=== PATIENT | male | born 1945 | race Caucasian/White ===

== ENCOUNTER 2022-04-02 19:24 | Emergency (ER) | payer OTHER ==
[~2022-04-02] VITALS: Ht 175.3 cm; Wt 61.2 kg
[2022-04-02 19:47] VITALS: BP_SYST 116
--- NOTE | 2022-04-02 22:29 | NUR ---
Assumed care of pt and pt is coming from home uses wheelchair due to left leg pain. Accompanied by daughter. Pt c/o left leg pain and swelling. Had left hip surgery x2 weeks ago. Went to urgent care but referred him here to rule out DVT. Pt is A&OX4. Skin intact. VSS.Has hx of DM, HTN, and TIA. NKA. Bed on lowest position.
--- NOTE | 2022-04-02 23:10 | NUR ---
Dr. Osorio at bedside examining pt.
--- NOTE | 2022-04-03 00:03 | NUR ---
COVID SWAB COLLECTED AND SENT TO LAB.
--- NOTE | 2022-04-03 00:06 | NUR ---
X-Ray at bedside.
[2022-04-03 00:21] LABS: HEMOGLOBIN 10.3 g/dL (14.0-18.0)
[2022-04-03 00:31] LABS: ANION GAP 9 (5-15); BASOPHILS % (AUTO) 0.4 % (0.0-2.0); CALCIUM 8.8 mg/dL (8.4-11.0); CHLORIDE 101 mmol/L (98-107); CREATININE 0.83 mg/dL (0.55-1.30); EOSINOPHILS # (AUTO) 0.4 K/uL (0.0-0.4); EOSINOPHILS % (AUTO) 5.7 % (0.0-4.0); GLUCOSE 206 mg/dL (70-99); HEMATOCRIT 30.2 % (36-54); LYMPHOCYTES # (AUTO) 0.8 K/uL (1.0-5.5); LYMPHOCYTES % (AUTO) 12.2 % (20.5-51.5); MEAN CORPUSCULAR HEMOGLOBIN 32 pg (27-31); MEAN CORPUSCULAR HGB CONC 34 % (32-36); MEAN CORPUSCULAR VOLUME 95 fL (79.0-98.0); MONOCYTES # (AUTO) 0.2 K/uL (0.0-1.0); MONOCYTES % (AUTO) 2.7 % (1.7-9.3); NEUTROPHILS # (AUTO) 4.9 K/uL (1.8-7.7); PLATELET COUNT (AUTO) 394 K/uL (130-430); RED BLOOD CELL COUNT(AUTO) 3.19 MIL/uL (4.2-6.2); RED CELL DISTRIBUTION WIDTH 15.8 % (9.0-15.0); UREA NITROGEN, BLOOD 27 mg/dL (8-21); WHITE BLOOD COUNT (AUTO) 6.2 K/uL (4.8-10.8)
[2022-04-03 00:37] LABS: INR 1.1 (0.80-1.20); PROTHROMBIN TIME 11.8 SECS (9.5-12.5)
[2022-04-03 00:40] LABS: ALANINE AMINOTRANSFERASE 21 U/L (12-78); ASPARTATE AMINOTRANSFERASE 16 U/L (10-37); TOTAL BILIRUBIN 0.9 mg/dL (0.0-1.0)
--- NOTE | 2022-04-03 01:36 | NUR ---
Called Steffi from lab for covid results due to still having no results when it was done over 1 hour ago. She stated in 15 minutes she will work on it.
[2022-04-03] MEDS ORDERED: [UNRECOGNIZED DRUG - CODE] MC (02:45)
[2022-04-03 03:11] VITALS: BP_SYST 118
--- NOTE | 2022-04-03 03:11 | NUR ---
Patient given written and verbal discharge instructions and verbalizes understanding. ER MD discussed with patient the results and treatment provided. Patient in stable condition. ID arm band removed. Patient educated on pain management and to follow up with PMD. Pain Scale 0/10. Opportunity for questions provided and answered. Medication side effect fact sheet provided.
== END 2022-04-03 03:11 | disposition home or self-care (01) ==
LOC: SED 19:24
DX: I89.0 Lymphedema, not elsewhere classified (principal); M25.552 Pain in left hip; E11.9 Type 2 diabetes mellitus without complications; I10 Essential (primary) hypertension; Z96.642 Presence of left artificial hip joint; Z79.899 Other long term (current) drug therapy; Z20.822 Contact with and (suspected) exposure to COVID-19
CPT/HCPCS: 36415; 71045; 80053; 83880; 84484; 85025; 85610-TC; 85730-TC; 93971; 99285

== ENCOUNTER 2023-04-06 08:01 | Emergency (ER) | payer MEDICARE, OTHER ==
[~2023-04-06] VITALS: Ht 175.3 cm; Wt 72.6 kg
[2023-04-06 08:01] VITALS: BP_SYST 144; PULSE 102; RESP 19; TEMP 98; O2SAT 94
[~2023-04-06 08:01] MED LIST: [UNRECOGNIZED DRUG - CODE] MC
[2023-04-06] MEDS ORDERED: iohexoL 350 mgI/mL, 100 ML INFUS..BTL IV ONE (08:14)
[2023-04-06 08:49] LABS: BASOPHILS % (AUTO) 0.3 % (0.0-2.0); EOSINOPHILS % (AUTO) 0.8 % (0.0-4.0); HEMATOCRIT 37.8 % (36-54); HEMOGLOBIN 12.3 g/dL (14.0-18.0); LYMPHOCYTES % (AUTO) 29.1 % (20.5-51.5); MEAN CORPUSCULAR HEMOGLOBIN 31 pg (27-31); MEAN CORPUSCULAR HGB CONC 33 % (32-36); MEAN CORPUSCULAR VOLUME 96 fL (79.0-98.0); MONOCYTES # (AUTO) 0.4 K/uL (0.0-1.0); MONOCYTES % (AUTO) 10.5 % (1.7-9.3); NEUTROPHILS # (AUTO) 2.1 K/uL (1.8-7.7); NEUTROPHILS % (AUTO) 59.3 % (40.0-70.0); PLATELET COUNT (AUTO) 169 K/uL (130-430); RED BLOOD CELL COUNT(AUTO) 3.95 MIL/uL (4.2-6.2); RED CELL DISTRIBUTION WIDTH 13.6 % (9.0-15.0)
[2023-04-06 09:03] LABS: ANION GAP 9 (5-15); CALCIUM 9.1 mg/dL (8.4-11.0); CARBON DIOXIDE 28 mmol/L (23-29); CHLORIDE 96 mmol/L (98-107); CREATININE 0.96 mg/dL (0.55-1.30); GLUCOSE 219 mg/dL (74-106); POTASSIUM 4.2 mmol/L (3.5-5.1); SODIUM SERUM 133 mmol/L (136-145); UREA NITROGEN, BLOOD 20 mg/dL (8-21)
[2023-04-06 09:08] LABS: CREATINE KINASE, TOTAL 157 U/L (39-308); LIPASE 20 U/L (16-77)
[2023-04-06 09:12] LABS: ABG O2 SAT% ESTIMATE 92.6 % (94.0-100.0); BLOOD GAS BASE EXCESS -0.5 mmol/L (-3.0-3.0); BLOOD GAS HCO3 24.1 mmol/L (21.0-27.0); BLOOD GAS PCO2 39.4 mmHg (32.0-45.0); BLOOD GAS PH 7.404 (7.350-7.450)
[2023-04-06 09:18] LABS: WHITE BLOOD COUNT (AUTO) 3.5 K/uL (4.8-10.8)
[2023-04-06 09:23] LABS: INR 1.1 (0.80-1.20); PROTHROMBIN TIME 11.8 SECS (9.5-12.5)
[2023-04-06 09:39] LABS: BILIRUBIN,URINE NEGATIVE (NEGATIVE); BLOOD, URINE NEGATIVE (NEGATIVE); CLARITY/URINE CLEAR (CLEAR); COLOR,URINE YELLOW (YELLOW); GLUCOSE,URINE 1+ (NEGATIVE); KETONES,URINE NEGATIVE (NEGATIVE); LEUKOCYTE ESTERASE ,URINE NEGATIVE (NEGATIVE); NITRITE, URINE NEGATIVE (NEGATIVE); PROTEIN URINE 1+ (NEGATIVE)
[2023-04-06 09:57] LABS: BACTERIA,URINE RARE /HPF (None Seen); RBC,URINE 0-3 /HPF (0-3); WBC,URINE 0-3 /HPF (0-3)
[2023-04-06 09:58] LABS: BARBITURATE, URINE NEGATIVE (NEG <=200); BENZODIAZEPINE, URINE NEGATIVE (NEG <=150); CANNABINOID, URINE NEGATIVE (NEG <=50); COCAINE, URINE NEGATIVE (NEG <=150); METHAMPHETAMINES SCREEN,URINE NEGATIVE (NEG <=500); OPIATE, URINE NEGATIVE (NEG <=100); PHENCYCLIDINE SCREEN,URINE NEGATIVE (NEG <=25); UR TRICYCLIC ANTIDEPRESSANTS NEGATIVE (NEG <=300); URINE AMPHETAMINE NEGATIVE (NEG <=500); URINE METHADONE NEGATIVE (NEG <=200); URINE OXYCODONE SCREEN NEGATIVE (NEG <=100)
[2023-04-06] MEDS ORDERED: cefTRIAXone 1 GM IVPB PREMIX 50 ML IV ONE (10:00)
[2023-04-06] MEDS ORDERED: NACL 0.9% 1,000 ML IV ONE (10:00)
[2023-04-06] MEDS ORDERED: AZITHROMYCIN 500 MG in NS 250 ML IV ONE (10:00)
[2023-04-06] MEDS ORDERED: AZITHROMYCIN 500 MG/VIAL (ZITHROMAX) IV ONE (10:06)
[2023-04-06 10:10] LABS: INFLUENZA TYPE A POSITIVE (NEGATIVE); INFLUENZA TYPE B POSITIVE (NEGATIVE)
[2023-04-06 10:54] VITALS: BP_SYST 147; PULSE 82; RESP 18; TEMP 96.2; O2SAT 98
== END 2023-04-06 10:57 | disposition short-term general hospital (02) ==
LOC: SED 08:01
DX: I63.9 Cerebral infarction, unspecified (principal); J18.9 Pneumonia, unspecified organism; I10 Essential (primary) hypertension; E11.9 Type 2 diabetes mellitus without complications; Z79.899 Other long term (current) drug therapy; Z20.822 Contact with and (suspected) exposure to COVID-19
CPT/HCPCS: 99291; 70450; 96365; 71045; 87426; 80307; 80048; 81001; 82550; 83037; 83690; 85025; 85610; 85730; 86886; 86900; 86901; 87040; 36415; 70496; 70498; 36600; 82803; 96368; 87804 ×2; 76376; Q9967; J0456; J0696; 81000; 81015